=== PATIENT | male | born 1990 | race Caucasian/White ===

== ENCOUNTER 2017-02-04 09:01 | Emergency (ER) | payer MEDICAID, MEDICARE ==
[~2017-02-04] VITALS: Ht 182.9 cm; Wt 107.0 kg
[2017-02-04] MEDS ORDERED: ONDANSETRON HCL 4MG/2ML VIAL IV STA (11:21)
[2017-02-04] MEDS ORDERED: MORPHINE SULFATE 4 MG/ML CPJ (NOT FOR IM USE) IV STA (11:21)
[2017-02-04] MEDS ORDERED: SODIUM CHLORIDE 0.9% 1,000 ML IV ONE (11:21)
[2017-02-04 11:55] LABS: BASOPHILS % 0.5 % (0.0-2.0); EOSINOPHILS % 0.4 % (0.0-5.0); HEMATOCRIT. 41.2 % (42.0-52.0); LYMPHOCYTES % 8.2 % (20.0-50.0); MEAN CORPUSCULAR HEMOGLOBIN 29.6 pg (28.0-32.0); MEAN PLATELET VOLUME 7.7 fl (7.4-10.4); MONOCYTES % 9.4 % (2.0-8.0); NEUTROPHILS % 81.5 % (40.0-76.0); PLATELET 269 x1000/uL (130-400); RED BLOOD CELL COUNT 4.73 mill/uL (4.7-6.1); RED CELL DISTRIBUTION WIDTH 13.4 % (11.6-14.6)
[2017-02-04 12:01] LABS: CHLORIDE 102 mEq/L (98-107)
[2017-02-04 12:03] LABS: INR 1.1; PROTHROMBIN TIME 11.2 sec
[2017-02-04 12:04] LABS: CLARITY URINE CLEAR (CLEAR); COLOR URINE YELLOW (YELLOW); GLUCOSE URINE NEGATIVE (NEGATIVE); KETONES URINE TRACE (NEGATIVE); LEUKOCYTE ESTERASE URINE NEGATIVE (NEGATIVE); NITRITE URINE NEGATIVE (NEGATIVE); OCCULT BLOOD URINE 3+ (NEGATIVE); PH URINE 6.5 (4.5-8.0); PROTEIN URINE TRACE (NEGATIVE); SPECIFIC GRAVITY URINE 1.028 (1.005-1.030)
[2017-02-04 12:09] LABS: CARBON DIOXIDE 29 mEq/L (21-32)
[2017-02-04 12:32] VITALS: BP 105/51
== END 2017-02-04 13:42 | disposition home or self-care (01) ==
LOC: ER 10:42
DX: A08.4 Viral intestinal infection, unspecified (principal)
CPT/HCPCS: 36415; 80053; 81001; 83690; 85025; 85610; 96361; 96374; 96375; 99284; J2270; J2405; J7030

== ENCOUNTER 2018-05-25 09:26 | Emergency (ER) | payer MEDICARE ==
[~2018-05-25] VITALS: Ht 182.9 cm; Wt 102.0 kg
[2018-05-25] MEDS ORDERED: KETOROLAC 60MG/2ML VIAL IM ONE (10:45)
[2018-05-25 11:15] VITALS: BP 110/61
== END 2018-05-25 11:16 | disposition home or self-care (01) ==
LOC: ER 09:57
DX: S39.012A Strain of muscle, fascia and tendon of lower back, initial encounter (principal); X58.XXXA Exposure to other specified factors, initial encounter; Y93.89 Activity, other specified; Y92.89 Other specified places as the place of occurrence of the external cause; Y99.8 Other external cause status
CPT/HCPCS: 96372; 99283; J1885

== ENCOUNTER 2020-04-26 21:43 | Emergency (ER) | payer MEDICAID, MEDICARE ==
[~2020-04-26] VITALS: Ht 182.9 cm; Wt 111.0 kg
[2020-04-26 21:52] VITALS: BP 125/86
[2020-04-26] MEDS ORDERED: ACETAMINOPHEN 325MG TABLET PO ONE (23:30)
== END 2020-04-27 02:06 | disposition home or self-care (01) ==
LOC: ER 21:43
DX: M79.621 Pain in right upper arm (principal); I10 Essential (primary) hypertension; W01.0XXA Fall on same level from slipping, tripping and stumbling without subsequent striking against object, initial encounter; Y93.9 Activity, unspecified; Y92.9 Unspecified place or not applicable
CPT/HCPCS: 29125; 71045; 73070; 73090; 73110; 99284

== ENCOUNTER 2022-10-01 01:18 | Emergency (ER) | payer OTHER ==
[~2022-10-01] VITALS: Ht 182.9 cm; Wt 91.0 kg
[2022-10-01] MEDS ORDERED: BACITRACIN ZINC OINT UDPKT TOP ONE (04:45)
[2022-10-01] MEDS ORDERED: LIDOCAINE HCL/PF 1% 10 MG/ML 5ML VIAL INFIL ONE (04:45)
[2022-10-01] MEDS ORDERED: IBUPROFEN 600MG TABLET PO ONE (04:45)
[2022-10-01] MEDS ORDERED: TETANUS, DIPHTHERIA, PERTUSSIS VAC/PF 0.5ML (>10YR OLD) IM ONE (04:45)
[2022-10-01] MEDS ORDERED: BO1 TP (06:02)
[2022-10-01] MEDS ORDERED: SODIUM CHLORIDE 0.9% 1,000 ML IV ONE (06:30)
[2022-10-01 06:45] LABS: EOSINOPHILS % 1.9 % (0.0-5.0); HEMATOCRIT. 43.8 % (42.0-52.0); HEMOGLOBIN. 14.6 g/dL (14.0-18.0); LYMPHOCYTES % 25.6 % (20.0-50.0); MEAN CORPUSCULAR HEMOGLOBIN 30.8 pg (28.0-32.0); MEAN CORPUSCULAR VOLUME 92.3 fL (80.0-94.0); MEAN PLATELET VOLUME 7.4 fl (7.4-10.4); MONOCYTES % 6.5 % (2.0-8.0); PLATELET 289 x1000/uL (130-400); RED BLOOD CELL COUNT 4.75 mill/uL (4.7-6.1); RED CELL DISTRIBUTION WIDTH 13.6 % (11.6-14.6)
[2022-10-01 06:51] LABS: CHLORIDE 105 mEq/L (98-107)
[2022-10-01 07:57] VITALS: BP 96/56
== END 2022-10-01 08:03 | disposition home or self-care (01) ==
LOC: ER 01:18
DX: S61.011A Laceration without foreign body of right thumb without damage to nail, initial encounter (principal); E86.0 Dehydration; W25.XXXA Contact with sharp glass, initial encounter; Y93.89 Activity, other specified; Y92.9 Unspecified place or not applicable; F10.129 Alcohol abuse with intoxication, unspecified; Y90.9 Presence of alcohol in blood, level not specified; Z23 Encounter for immunization; Z71.85 Encounter for immunization safety counseling
CPT/HCPCS: 12001; 36415; 80053; 85025; 90471; 90715; 96360; 99283; J3490; J7030; Z7610

== ENCOUNTER 2023-04-06 16:43 | Emergency (ER) | payer SELFPAY ==
[~2023-04-06] VITALS: Ht 182.9 cm; Wt 91.0 kg
[~2023-04-06 16:43] MED LIST: BO1 TP
[2023-04-06 16:53] VITALS: BP 97/56; PULSE 86; RESP 16; TEMP 98.4; O2SAT 99
== END 2023-04-06 20:30 | disposition left against medical advice (07) ==
LOC: ER 16:43
DX: R07.81 Pleurodynia (principal); Z53.21 Procedure and treatment not carried out due to patient leaving prior to being seen by health care provider
CPT/HCPCS: 99281

== ENCOUNTER 2023-08-17 18:54 | Emergency (ER) | payer SELFPAY ==
[~2023-08-17] VITALS: Ht 177.8 cm; Wt 100.0 kg
[2023-08-17 19:07] VITALS: BP 117/78; PULSE 105; RESP 18; TEMP 98.2; O2SAT 99
== END 2023-08-17 23:16 | disposition left against medical advice (07) ==
LOC: ER 18:54
DX: Z48.02 Encounter for removal of sutures (principal); Z53.21 Procedure and treatment not carried out due to patient leaving prior to being seen by health care provider
CPT/HCPCS: 99281; Z7610

== ENCOUNTER 2023-08-18 00:14 | Emergency (ER) | payer SELFPAY ==
[~2023-08-18] VITALS: Ht 182.9 cm; Wt 83.0 kg
[2023-08-18 00:19] VITALS: BP 132/89; PULSE 100; RESP 16; TEMP 98.9; O2SAT 98
== END 2023-08-18 00:37 | disposition home or self-care (01) ==
LOC: ER 00:14
DX: Z48.02 Encounter for removal of sutures (principal)
CPT/HCPCS: 99281; Z7610